=== PATIENT | female | born 1980 | race Caucasian/White ===

== ENCOUNTER 2017-07-19 16:57 | Emergency (ER) | payer OTHER ==
--- NOTE | 2017-07-19 17:34 | EDPHY ---
HPI/HX/ROS/PE/MDM Narrative: CHIEF COMPLAINT: Dizzy HISTORY OF PRESENT ILLNESS: The patient is a 37 y/o female who complains of dizziness onset 3 hours ago. She has a 6 month history of similar symptoms, very brief, and always resolved on their own. While she was finishing a hike today, her head began to feel "heavy" and she did not feel stable while walking. When she was at her car, she reports falling down when getting out of her car due to the dizziness. When she closes her eyes she becomes more nauseas, she also becomes dizzy when she looks up. Denies taking Aspirin, recent trauma, or recent manipulations of her neck. No oral contraceptives. Nonsmoker. No fever, chills, chest pain, shortness of breath, palpitations, vomiting, diarrhea, urinary complaints, headache. REVIEW OF SYSTEMS: Aside from elements discussed in the HPI, a comprehensive 10-point review of systems was reviewed and is negative. PAST MEDICAL HISTORY: 1 year ago SOCIAL HISTORY: at bedside Lives in [place] Nonsmoker VITAL SIGNS Reviewed by me. GENERAL: Uncomfortable in bed, well-developed, well-nourished. HEENT: Atraumatic. Eyes: PERRL, EOMI, no nystagmus. No icterus. No injection. Mouth: moist mucous membranes. No erythema or lesions. Neck: Nontender to palpation. No adenopathy. No meningismus. FROM. LUNGS: Clear to auscultation bilaterally, no wheezes, rhonchi or rales. CARDIAC: Regular rate and rhythm, no rubs, murmurs or gallops. ABDOMEN: Soft, nontender, nondistended, bowel sounds normal. BACK: No CVA tenderness. EXTREMITIES: No trauma. Mild bilateral pedal edema. Range of motion is normal throughout. NEURO: Feels imbalanced while moving in bed. Alert and oriented, cranial nerves II through XII are intact. Motor strength 5 over 5 in all major muscle groups. Sensation intact to light touch. Finger to nose and heel to james seem difficult, slow. SKIN: Warm and dry, no rash. PSYCHIATRIC: Normal mentation, no agitation. Portions of this note were transcribed by a remote medical coder. I personally performed a history, physical exam, medical decision making, and confirmed accuracy of information the transcribed note. ED Course: The patient is a 37 y/o female who presents with instability and nausea onset 3 hours ago. She is unstable in bed while moving around. Plan for labs, valium, meclizine. 1734: 12-LEAD EKG: Please see the full report in [facility]. My interpretation: Normal sinus rhythm with a rate of 56. Following fluids, valium and meclizine, patient reports only very mild improvement. Imaging study ordered. Will start with head CT. 1843: Spoke with radiologist, head CT is negative. 1850: Reassessed patient and discussed CT results. Patient ambulated with nursing staff; very slow and still off balance. Symptoms seem a bit more positional and associated with positioning or movement , but certainly not safe for discharge. Reports significant nausea; given zofran. Patient developed severe headache. Treated with dilaudid. Plan for admission and will obtain CT-A for further evaluation. CT-angiograms of head and neck normal. Discussed results with patient and . Seem reluctant to be admitted, but still not feeling well. Declined further treatment for headache, except for toradol. Family requesting alena bauer; this was performed in the usual standard method. Patient quite nauseated and dizzy during procedure; some nystagmus elicited on turning head to right and to left. Would prefer discharge to home and not be admitted. Will be with . Understands my concerns regarding her fall risk as well as only moderate improvement with ED measures. Will DC with valium prepack as well as meclizine and meclizine prescriptions. Understands she can return at any point if she changes her mind. MDM: Differential diagnoses the patient's presenting complaints was considered including but not limited to vertigo, electrolyte abnormalities, intracranial injury, TIA, ischemic cerebrovascular accident, hemorrhagic cerebrovascular accident, hypoglycemia, complex migraine, arrthythmias, cerebral venous thromboemboli. - Data Points Imaging Results: Head CT: Impression: There is no acute abnormality identified on this unenhanced CT evaluation. If there is further clinical concern regarding the patient's symptoms, MR imaging is suggested, if not otherwise contraindicated. Findings were discussed with Martha Shanks MD at 18:42, on 07/19/2017. Dictated By: Ty Butler MD CT angiogram of head and neck: Impression: Normal CT angiogram of the neck. No atheroma, dissection, or occlusion. Findings discussed with Emergency Department physician, Martha Shanks M.D., on July 19, 2017 at 2105. Dictated By: Jose Palomares MD Impression: 1. Normal intracranial arterial circulation. No evidence of embolic disease or aneurysm. 2. Patent venous system. Findings discussed with Emergency Department physician, Martha Shanks MD at 07/19/2017 21:05. Dictated By: Jose Palomares MD Imaging: Discussed imaging studies w/ environmental research scientist Radiologist, I viewed and interpreted images myself Laboratory Results: Laboratory Results 07/19/17 17:30 07/19/17 17:30 Medications Given: Discontinued Medications Dexamethasone (Decadron Injection) 10 mg IVP EDNOW ONE Stop: 07/19/17 20:08 Last Admin: 07/19/17 20:17 Dose: 10 mg Diazepam (Valium Injection) 2.5 mg IVP EDNOW ONE Stop: 07/19/17 17:42 Last Admin: 07/19/17 17:57 Dose: 2.5 mg Diazepam (Valium 5 Mg Prepack#4) 1 btl TAKEHOME EDNOW ONE Stop: 07/19/17 21:50 Last Admin: 07/19/17 22:15 Dose: Not Given Diazepam (Valium 5 Mg Prepack#4) 1 btl TAKEHOME EDNOW ONE Stop: 07/19/17 21:54 Last Admin: 07/19/17 22:07 Dose: 1 btl Diphenhydramine HCl (Benadryl Injection) 25 mg IVP EDNOW ONE Stop: 07/19/17 21:13 Last Admin: 07/19/17 22:18 Dose: Not Given Hydromorphone HCl (Dilaudid) 0.5 mg IVP EDNOW ONE Stop: 07/19/17 20:09 Last Admin: 07/19/17 20:17 Dose: 0.5 mg Sodium Chloride (Ns) 1,000 mls @ 0 mls/hr IV ONCE ONE; Wide Open PRN Reason: Protocol Stop: 07/19/17 20:08 Last Admin: 07/19/17 20:20 Dose: 1,000 mls Ketorolac Tromethamine (Toradol) 30 mg IVP EDNOW ONE Stop: 07/19/17 21:13 Last Admin: 07/19/17 21:23 Dose: 30 mg Meclizine HCl (Meclizine Hcl) 25 mg PO EDNOW ONE Stop: 07/19/17 18:50 Last Admin: 07/19/17 18:56 Dose: 25 mg Meclizine HCl (Meclizine Hcl) 25 mg PO EDNOW ONE Stop: 07/19/17 21:51 Last Admin: 07/19/17 22:07 Dose: 25 mg Metoclopramide HCl (Reglan Injection) 10 mg IVP EDNOW ONE Stop: 07/19/17 21:13 Last Admin: 07/19/17 22:18 Dose: Not Given Ondansetron HCl (Zofran) 4 mg IVP EDNOW ONE Stop: 07/19/17 18:54 Last Admin: 07/19/17 18:56 Dose: 4 mg General Time Seen by Provider: 07/19/17 17:19 Initial Vital Signs: Initial Vital Signs Temperature (C) 36.6 C 07/19/17 16:57 Heart Rate 65 07/19/17 16:57 Respiratory Rate 16 07/19/17 16:57 Blood Pressure 127/82 H 07/19/17 16:57 O2 Sat (%) 98 07/19/17 16:57 O2 Delivery Mode Room Air Allergies/Adverse Reactions: No Known Allergies Allergy (Unverified 07/19/17 17:02) Home Medications: Medication Instructions Recorded Levothyroxine [Synthroid 75 mcg 75 mcg PO DAILY@07 07/19/17 (*)] Meclizine HCl [Meclizine HCl 25 mg 25 mg PO BID #20 tab 07/19/17 (RX,OTC)] Multivitamins [Multivitamin (*)] 1 each PO DAILY 07/19/17 Departure - Departure Disposition: [facility] Inpatient Acute Clinical Impression: Vertigo, Headache, Dizziness Condition: Fair Instructions: Diazepam (By mouth), Meclizine (By mouth), Vertigo (ED) Additional Instructions: 1. You may take Valium 2.5-5 mg every 8 hours as needed to help control your dizziness. You been given a prepack. 2. You may take meclizine 25 mg every 8-12 hours for dizziness. You been given a prescription. 3. Drink plenty of fluids. 4. If symptoms persist for more than 48 hours, followup with your primary care physician and/or [facility] Th[facility] for further evaluation. You been given a referral. 5. You may return to the emergency department at any point if you dizziness is not being controlled with the above medications, if you are unstable on your feet and feel like you are at risk for a fall, or if you have other concerns. Referrals: Viki Gamboa MD [Medical Doctor] - As per Instructions Ty Hanson DO [Medical Doctor] - As per Instructions Morena Wilson MD [Medical Doctor] - (Follow up with [facility] as needed for ongoing symptoms) Prescriptions: Meclizine HCl [Meclizine HCl 25 mg (RX,OTC)] 25 mg PO BID #20 tab Report Scribed for: Martha Shanks Report Scribed by: Carolyn Clancy Date of Report: 07/19/17 Time of Report: 17:45
--- NOTE | 2017-07-19 17:35 | CPEKG ---
Heart Rate: 56 RR Interval: 1071 P-R Interval: 116 QRSD Interval: 84 QT Interval: 464 QTC Interval: 448 P [place]: 24 QRS [place]: 73 T Wave [place]: 53 EKG Severity - ABNORMAL ECG - EKG Impression: SINUS RHYTHM EKG Impression: NONSPECIFIC T ABNORMALITIES, LATERAL LEADS Electronically Signed By: Martha Shanks 19-Jul-2017 21:15:53
[2017-07-19] MEDS ORDERED: DIAZEPAM 10 MG/2 ML SYR IVP ONE (17:41)
[2017-07-19 17:46] LABS: % IMMATURE GRANULYOCYTES 0.2 % (0.0-1.1); ABSOLUTE IMMATURE GRANULOCYTES 0.01 10^3/uL (0.00-0.10); ADD DIFF? NO; ADD MORPH? NO; ADD SCAN? NO; ATYPICAL LYMPHOCYTE FLAG 0 (0-99); FRAGMENT RBC FLAG 10 (0-99); HEMATOCRIT 41.9 % (38.0-47.0); LEFT SHIFT FLG 0 (0-99); LIPEMIA HEMOLYSIS FLAG 80 (0-99); MEAN CELL HEMOGLOBIN 31.6 pg (27.9-34.1); MEAN CELL HEMOGLOBIN CONCENTR. 33.4 g/dL (32.4-36.7); MEAN CELL VOLUME 94.6 fL (81.5-99.8); MEAN PLATELET VOLUME 9.9 fL (8.7-11.7); PLATELET CLUMPS FLAG 10 (0-99); PLATELET COUNT 303 10^3/uL (150-400); RED BLOOD CELL COUNT 4.43 10^6/uL (4.18-5.33)
[2017-07-19 17:59] LABS: ANION GAP 14 mEq/L (8-16); CALCIUM 9.7 mg/dL (8.5-10.4); CARBON DIOXIDE 26 mEq/l (22-31); CHLORIDE 102 mEq/L (97-110); CREATININE 0.9 mg/dL (0.6-1.0); GLOMERULAR FILTRATION RATE > 60; GLUCOSE 105 mg/dL (70-100); SODIUM 142 mEq/L (134-144)
[2017-07-19] MEDS ORDERED: MECLIZINE HCL 25 MG TAB PO ONE ×2 (18:49→21:50)
[2017-07-19] MEDS ORDERED: ONDANSETRON 4 MG/2 ML VIAL IVP ONE (18:53)
[2017-07-19] MEDS ORDERED: DEXAMETHASONE 10 MG/ML VIAL IVP ONE (20:07)
[2017-07-19] MEDS ORDERED: NS 1,000 ML IV ONE (20:07)
[2017-07-19] MEDS ORDERED: HYDROmorphONE/DILAUDID 1 MG/ML INJ IVP ONE (20:08)
[2017-07-19] MEDS ORDERED: IOPAMIDOL (ISOVUE 370) 100 ML BTL IV ONE (20:15)
[2017-07-19 20:24] VITALS: RESP 16
[2017-07-19] MEDS ORDERED: METOCLOPRAMIDE 10 MG/2 ML VIAL IVP ONE (21:12)
[2017-07-19] MEDS ORDERED: KETOROLAC 30 MG/1 ML SDV IVP ONE (21:12)
[2017-07-19] MEDS ORDERED: DIAZEPAM 5 MG PREPACK#4 BTL TAKEHOME ONE ×2 (21:49→21:53)
[2017-07-19 22:20] VITALS: BP 121/76; PULSE 74; TEMP 98.2; O2SAT 95
== END 2017-07-19 22:21 | disposition home or self-care (01) ==
LOC: UNDOADMOB 20:43
DX: R42 Dizziness and giddiness (principal); R51 Headache; E86.9 Volume depletion, unspecified
CPT/HCPCS: 96374; J1100; J1170; J1200; J1885; J2405; J2765; Q9967